=== PATIENT | female | born 1960 | race Caucasian/White ===

== ENCOUNTER → 2017-09-17 | Outpatient (CLI) | payer OTHER ==
[~2017-09-17] MED LIST: BENTYL 10 MG CA10 MG PO; CITALOPRAM HBR40 MG PO; FENOFIBRATE160 MG PO; HYDROCODONE-AP1 EAC6 PO; JANUMET 50-1,01 EACH PO; OMEPRAZOLE40 MG PO; ONDANSETRON HCL4 M2 PO; TRAZODONE HCL100 MG PO; ZYRTEC10 M5 PO
== END ==
LOC: M.ULTRA 15:26
DX: R10.2 Pelvic and perineal pain (principal); Z90.710 Acquired absence of both cervix and uterus

== ENCOUNTER → 2021-01-07 | Outpatient (CLI) | payer OTHER | LOC: M.ULTRA 15:38 | PROVIDERS: ATTEND Family Medicine | DX: M79.604 Pain in right leg (principal) ==